=== PATIENT | male | born 1995 | race Caucasian/White ===

== ENCOUNTER 2018-01-01 23:05 | Emergency (ER) | payer BC ==
[2018-01-01] MEDS ORDERED: Fentanyl 100 MCG/2 ML VIAL ONE (23:41)
[2018-01-01] MEDS ORDERED: Adacel (T-DAP) 0.5 ML VIAL ONE (23:41)
[2018-01-01] MEDS ORDERED: CEFAZOLIN/Water 2 GM/20 ML SYRINGE SLOW IVP SCH (23:45)
[2018-01-01 23:50] LABS: Prothrombin Time 13.7 SEC (12.0-14.7)
[2018-01-01 23:53] LABS: Anion Gap 15 mmol/L (10-20); BUN (Urea Nitrogen) 14 mg/dL (8.9-20.6); Calc. Creatinine Clearance 0 mL/min (70-130); Calcium 9.4 mg/dL (7.8-10.44); Carbon Dioxide 20 mmol/L (22-29); Chloride 108 mmol/L (98-107); Estimated GFR-MDRD 80; Glucose 76 mg/dL (70-105); Potassium 3.8 mmol/L (3.5-5.1); Sodium 139 mmol/L (136-145)
[2018-01-01 23:59] LABS: #Eosinphils 0.2 thou/uL (0.0-0.7); #Lymphocytes 1.9 thou/uL (1.20-3.40); #Monocytes 0.5 thou/uL (0.11-0.59); #Neutrophils 5.5 thou/uL (1.40-6.50); %Basophils 0.6 % (0.0-1.0); %Eosinophils 1.9 % (0.0-10.0); %Lymphocytes 23.2 % (21.0-51.0); %Monocytes 6.1 % (0.0-10.0); %Neutrophils 68.2 % (42.0-75.0); Hemoglobin 15.9 g/dL (14.0-18.0); Mean Corpuscular HGB CONC 32.4 g/dL (32.0-36.0); Mean Corpuscular Volume 92.5 fL (78.0-98.0); Mean Platelet Volume 6.8 fL (7.4-10.4); Platelet Count 277 thou/uL (130-400); RBC Distribution Width 12.1 % (11.5-14.5); Red Blood Cell (RBC) Count 5.29 mill/uL (4.70-6.10); White Blood Cell (WBC) Count 8.1 thou/uL (4.8-10.8)
[2018-01-02] MEDS ORDERED: Morphine 4 MG/ML VIAL ONE (00:40)
--- NOTE | 2018-01-02 07:40 | RAD ---
RADIOGRAPH RIGHT HAND 3 VIEWS: Date: 01/01/18 Time: 2344 hours HISTORY: 22-year-old male status post laceration to the right hand. FINDINGS: There is an old bowing deformity of the fifth metacarpal, such that the distal portion is angulated a nteriorly. There is no acute fracture lucency. No dislocation. No radiopaque foreign body. IMPRESSION: 1. Old, healed boxer's fracture deformity of fifth metacarpal. 2. No acute fracture. POS: [facility]
== END 2018-01-02 01:24 | disposition short-term general hospital (02) ==
LOC: ERS 23:05
DX: S65.911A Laceration of unspecified blood vessel at wrist and hand level of right arm, initial encounter (principal); F17.210 Nicotine dependence, cigarettes, uncomplicated; Z23 Encounter for immunization; W25.XXXA Contact with sharp glass, initial encounter
CPT/HCPCS: 80048; 85025; 85610; 85730; 90471; 90715; 96361; 96374; 96375; J2270; J3010